=== PATIENT | female | born 1980 | race African-American/Black ===

== ENCOUNTER 2016-05-21 12:40 | Emergency (ER) | payer OTHER ==
[~2016-05-21] VITALS: Ht 165.1 cm; Wt 72.0 kg
[2016-05-21 13:19] VITALS: BP 121/75
[2016-05-21] MEDS ORDERED: METHYLPREDNISOLONE SOD SUCC 125 MG/2 ML VIAL IV ONE (13:45)
[2016-05-21] MEDS ORDERED: DIPHENHYDRAMINE 50MG/ML VIAL IV ONE (13:45)
[2016-05-21] MEDS ORDERED: FAMOTIDINE 20MG/2ML VIAL IV ONE (13:45)
== END 2016-05-21 15:11 | disposition home or self-care (01) ==
LOC: ER 14:01
DX: L23.9 Allergic contact dermatitis, unspecified cause (principal); F17.210 Nicotine dependence, cigarettes, uncomplicated
CPT/HCPCS: 96374; 96375; 99284; J1200; J2930; J3490; Z7610

== ENCOUNTER 2017-03-07 11:13 | Emergency (ER) | payer OTHER ==
[~2017-03-07] VITALS: Ht 167.6 cm; Wt 68.0 kg
[2017-03-07 11:14] VITALS: BP 98/61
[2017-03-07] MEDS ORDERED: LIDOCAINE HCL 1% 20ML VIAL (Pyxis) INJ MC ONE (12:15)
[2017-03-07] MEDS ORDERED: ACETAMINOPHEN 500MG TABLET PO ONE (12:15)
[2017-03-07] MEDS ORDERED: BACITRACIN ZINC OINT UDPKT TOP ONE (12:15)
== END 2017-03-07 13:40 | disposition home or self-care (01) ==
LOC: ER 11:27
DX: S01.01XA Laceration without foreign body of scalp, initial encounter (principal); W20.8XXA Other cause of strike by thrown, projected or falling object, initial encounter; Y93.89 Activity, other specified; Y92.89 Other specified places as the place of occurrence of the external cause; Y99.8 Other external cause status; Z98.890 Other specified postprocedural states
CPT/HCPCS: 12001; 99283; J3490; X7700; Z7610; 12002

== ENCOUNTER 2017-03-21 09:09 | Emergency (ER) | payer OTHER ==
[~2017-03-21] VITALS: Ht 165.1 cm; Wt 75.0 kg
[2017-03-21 10:18] VITALS: BP 109/65
[2017-03-21] MEDS ORDERED: ACETAMINOPHEN 500MG TABLET PO ONE (10:30)
[2017-03-21] MEDS ORDERED: BACITRACIN ZINC OINT UDPKT TOP ONE (10:30)
== END 2017-03-21 11:06 | disposition left against medical advice (07) ==
LOC: ER 09:29
DX: Z48.02 Encounter for removal of sutures (principal)
CPT/HCPCS: 99283; Z7610